=== PATIENT | male | born 1960 | race Caucasian/White ===

== ENCOUNTER 2017-01-10 05:30 | Inpatient (IN) | payer OTHER ==
[~2017-01-10] VITALS: Ht 185.4 cm; Wt 117.9 kg
[~2017-01-10 05:30] MED LIST: ATEN-41 PO; SIMV40TA2 PO
[2017-01-10] MEDS ORDERED: cefOXitin 1 GM IVPB PREMIX 100 ML IV ONE (06:10)
[2017-01-10] MEDS ORDERED: ALVIMOPAN 12 MG CAPSULE PO ONE (06:10)
[2017-01-10] MEDS ORDERED: LR 1,000 ML IV SCH (08:12)
[2017-01-10] MEDS ORDERED: ONDANSETRON HCL 4 MG/2 ML VIAL IVP PRN ×2 (08:15→10:15)
[2017-01-10] MEDS ORDERED: HYDROmorphone 2 MG/ML VIAL IVP PRN (08:15)
[2017-01-10] MEDS ORDERED: HYDROmorphone 1 MG INJ. 1 MG/ML AMPUL IVP PRN ×2 (08:15)
[2017-01-10] MEDS ORDERED: HYDROcodone/ACETAMIN 5-325 MG TAB (NORCO/ VICODIN) PO PRN ×2 (10:15)
[2017-01-10] MEDS ORDERED: ACETAMINOPHEN 325 MG TABLET PO PRN (10:15)
[2017-01-10] MEDS ORDERED: HYDROmorphone 1 MG INJ. 1 MG/ML AMPUL ONE ×2 (10:35→10:53)
[2017-01-10] MEDS ORDERED: ONDANSETRON HCL 4 MG/2 ML VIAL ONE (10:35)
[2017-01-10 11:13] LABS: HEMATOCRIT 50.1 % (36-54); HEMOGLOBIN 16.6 g/dL (14.0-18.0)
[2017-01-10 11:20] VITALS: BP_SYST 130
[2017-01-10 11:32] LABS: CALCIUM 8.5 mg/dL (8.4-11.0); CREATININE 1.14 mg/dL (0.55-1.30); POTASSIUM 4.6 mmol/L (3.5-5.1)
[2017-01-10 11:52] VITALS: BP_SYST 140
[2017-01-10] MEDS: D5/0.45 NS 1,000 ML IV SCH ×2 (11:59→21:23)
[2017-01-10 16:43] VITALS: BP_SYST 148
[2017-01-10 20:00] VITALS: BP_SYST 124
[2017-01-10] MEDS: ALVIMOPAN 12 MG CAPSULE PO SCH (21:19)
[2017-01-10] MEDS: ATENOLOL 25 MG TABLET(TENORMIN) PO SCH (21:20)
[2017-01-10] MEDS: SIMVASTATIN 40 MG TABLET PO SCH (21:21)
[2017-01-10] MEDS: FAMOTIDINE PF 20 MG/2 ML VIAL IVP SCH (21:21)
[2017-01-10] MEDS: cefOXitin SODIUM 2 GM in D5W 100 ML IV SCH (21:22)
[2017-01-10] MEDS: HYDROmorphone 1 MG INJ. 1 MG/ML AMPUL IVP PRN (21:36)
[2017-01-11] VITALS (7 sets, daily range): BP systolic 99–125
[2017-01-11] MEDS: HYDROmorphone 1 MG INJ. 1 MG/ML AMPUL IVP PRN ×6 (02:23→21:15)
[2017-01-11] MEDS: D5/0.45 NS 1,000 ML IV SCH ×2 (06:12→22:34)
[2017-01-11 06:31] LABS: ALBUMIN 3.5 g/dL (3.4-4.8); BASOPHILS % (AUTO) 0.4 % (0.0-2.0); CALCIUM 7.9 mg/dL (8.4-11.0); CREATININE 1.04 mg/dL (0.55-1.30); EOSINOPHILS # (AUTO) 0.1 K/uL (0.0-0.4); EOSINOPHILS % (AUTO) 0.7 % (0.0-4.0); HEMATOCRIT 43.7 % (36-54); HEMOGLOBIN 14.8 g/dL (14.0-18.0); LYMPHOCYTES # (AUTO) 1.2 K/uL (1.0-5.5); LYMPHOCYTES % (AUTO) 15.4 % (20.5-51.5); MEAN CORPUSCULAR HEMOGLOBIN 31 pg (27-31); MEAN CORPUSCULAR HGB CONC 34 % (32-36); MEAN CORPUSCULAR VOLUME 91 fL (79.0-98.0); MONOCYTES # (AUTO) 0.7 K/uL (0.0-1.0); MONOCYTES % (AUTO) 9.6 % (1.7-9.3); NEUTROPHILS # (AUTO) 5.8 K/uL (1.8-7.7); NEUTROPHILS % (AUTO) 73.9 % (40.0-70.0); PLATELET COUNT (AUTO) 211 K/uL (130-430); POTASSIUM 4.3 mmol/L (3.5-5.1); RED BLOOD CELL COUNT(AUTO) 4.79 MIL/uL (4.2-6.2); RED CELL DISTRIBUTION WIDTH 12.2 % (9.0-15.0); TOTAL BILIRUBIN 0.8 mg/dL (0.0-1.0); WHITE BLOOD COUNT (AUTO) 7.8 K/uL (4.8-10.8)
[2017-01-11] MEDS ORDERED: LR 1,000 ML IV.SOLN IV ONE (07:30)
[2017-01-11] MEDS ORDERED: NS 1000 ML BAG IV ONE (07:30)
[2017-01-11] MEDS ORDERED: ONDANSETRON HCL 4 MG/2 ML VIAL IVP ONE (07:30)
[2017-01-11] MEDS ORDERED: MIDAZOLAM HCL 5 MG/5 ML VIAL IVP ONE (07:30)
[2017-01-11] MEDS ORDERED: PROPOFOL 200MG/ 20ML VIAL (DIPRIVAN) IV ONE (07:30)
[2017-01-11] MEDS ORDERED: NS IRRIG SOLN 1000 ML IR ONE (07:30)
[2017-01-11] MEDS ORDERED: SEVOFLURANE 15 MIN GAS INH ONE (07:30)
[2017-01-11] MEDS ORDERED: BUPIVACAINE LIPOSOME/PF 266 MG/20 ML VIAL INFIL ONE (07:30)
[2017-01-11] MEDS ORDERED: ROCURONIUM BROMIDE 10 MG/ML (ZEMURON) IV ONE (07:30)
[2017-01-11] MEDS ORDERED: fentaNYL CITRATE 250 MCG/5 ML AMP IV ONE (07:30)
[2017-01-11] MEDS: FAMOTIDINE PF 20 MG/2 ML VIAL IVP SCH ×2 (09:32→21:24)
[2017-01-11] MEDS: cefOXitin SODIUM 2 GM in D5W 100 ML IV SCH (09:32)
[2017-01-11] MEDS: ALVIMOPAN 12 MG CAPSULE PO SCH ×2 (09:33→21:14)
[2017-01-11] MEDS: ENOXAPARIN SODIUM 30 MG/0.3 ML SYRINGE SUBCUT SCH (09:33)
[2017-01-11] MEDS: METOCLOPRAMIDE HCL 10 MG/2 ML VIAL IVP SCH ×3 (13:24→23:54)
[2017-01-11] MEDS: SIMVASTATIN 40 MG TABLET PO SCH (21:13)
[2017-01-11] MEDS: ATENOLOL 25 MG TABLET(TENORMIN) PO SCH (21:14)
[2017-01-12] MEDS: D5/0.45 NS 1,000 ML IV SCH ×2 (02:12→09:29)
[2017-01-12] MEDS: HYDROmorphone 1 MG INJ. 1 MG/ML AMPUL IVP PRN ×3 (03:40→12:41)
[2017-01-12 04:00] VITALS: BP_SYST 104
[2017-01-12] MEDS: METOCLOPRAMIDE HCL 10 MG/2 ML VIAL IVP SCH ×2 (06:46→12:51)
[2017-01-12 08:19] VITALS: BP_SYST 131
[2017-01-12] MEDS: FAMOTIDINE PF 20 MG/2 ML VIAL IVP SCH (09:26)
[2017-01-12] MEDS: ALVIMOPAN 12 MG CAPSULE PO SCH (09:27)
[2017-01-12] MEDS: ENOXAPARIN SODIUM 30 MG/0.3 ML SYRINGE SUBCUT SCH (09:30)
[2017-01-12 12:12] VITALS: BP_SYST 118
[2017-01-12 13:28] VITALS: BP_SYST 131
== END 2017-01-12 14:10 | disposition home or self-care (01) | DRG 331 ==
LOC: SMU 05:30 → EDSTATUS 07:30 → SMU 11:31
PROVIDERS: ADMIT Colon & Rectal Surgery; ATTEND Colon & Rectal Surgery
PROC: 0DNL4ZZ Release Transverse Colon, Percutaneous Endoscopic Approach (ICD-10-PCS; 2017-01-10)
PROC: 0DJD8ZZ Inspection of Lower Intestinal Tract, Via Natural or Artificial Opening Endoscopic (ICD-10-PCS; 2017-01-10)
PROC: 0DBN4ZZ Excision of Sigmoid Colon, Percutaneous Endoscopic Approach (ICD-10-PCS; principal; 2017-01-10 07:30)
DX: K57.32 Diverticulitis of large intestine without perforation or abscess without bleeding (principal); E78.5 Hyperlipidemia, unspecified; I10 Essential (primary) hypertension; Z79.899 Other long term (current) drug therapy
CPT/HCPCS: 36415; 80048; 80053; 85018-TC; 85025; 87081; 88307; 94010; C1727; C9290; J0694; J1170; J1650; J2250; J2405; J2704; J2765; J3010; J3490; J7030; J7060; J7120